=== PATIENT | male | born 2000 | race Caucasian/White ===

== ENCOUNTER 2019-05-31 04:21 | Emergency (ER) | payer SELFPAY ==
--- NOTE | ~2019-05-31 | US_ITS ---
EXAMINATION: US scrotum doppler EXAM DATE: 05/31/2019 06:42 INDICATION: Right-sided testicular pain. TECHNIQUE: Multiple grayscale and Doppler images of the testicles and scrotum were obtained bilateral ly. There is no prior study for comparison. FINDINGS: Right testicle measures 4.7 x 2.4 x 3.3 cm and is morphologically normal. Low resistance Doppler donnie w confirmed. The epididymis is unremarkable. There is no hydrocele or varicocele. Left testicle measures 4.5 x 2.1 x 3.3 cm and is morphologically normal. Low resistance Doppler flow confirmed. The epididymis is unremarkable. There is no hydrocele or varicocele. IMPRESSION: 1. Unremarkable testicular/scrotal ultrasound exam. Reviewed, dictated and finalized at location A.
[2019-05-31 04:26] VITALS: BP 151/60; PULSE 90; RESP 16; TEMP 36.6; O2SAT 100
[2019-05-31 05:17] LABS: Add Urine Microscopic? YES; Appearance Urine Clear (Clear); Bilirubin Urine Negative (Negative); Blood Urine Negative (Negative); Color Urine Straw (Yellow); Glucose Urine UA Negative (Negative); Ketones Urine Negative (Negative); Leukocyte Esterase Ur Negative LEU/UL (Negative); Mucus Urine Rare /lpf; Nitrate Urine Negative (Negative); Protein Urine Negative (Negative); RBC Urine 0-2 /hpf (0-2); Specific Grav Ur 1.015 (1.001-1.035)
--- NOTE | 2019-05-31 05:18 | ED.MALEGU ---
HPI - Male Genitourinary General Chief complaint: Urogenital-Male Stated complaint: R testicular pain Time Seen by Provider: 05/31/19 04:24 History of Present Illness HPI Narrative: Patient is a 18-year-old male who presents ER with right testicular tenderness. He has had this pain intermittently since August 2018 however is become more uncomfortable over the last 48 hours. Is occasionally associated with urinary frequency but no hematuria or dysuria. He is noticed some clear liquid coming from the tip of his penis after he urinates but is not malodorous or viscous. Not concerned about sexually transmitted infection. No nausea/vomiting/sweats. No history of kidney stones and had more family member. No known trauma. Most tender over the posterior aspect of the right testicle but is without swelling. Pain will occasionally radiate up into the epigastrium. Related Data Home Medications Medication Instructions Recorded Confirmed No Home Medications 05/31/19 05/31/19 Allergies Allergy/AdvReac Type Severity Reaction Status Date / Time No Known Allergies Allergy Verified 05/31/19 06:25 Review of Systems Review of Systems: All systems reviewed & are unremarkable except as noted in HPI and below Constitutional: Constitutional: Denies chills and Denies fever(s) Gastrointestinal: Gastrointestinal: Reports abdominal pain, Denies nausea and Denies vomiting Genitourinary: Genitourinary: Denies hematuria, Denies dysuria, Denies penile discharge, Reports testicular pain and Reports urinary frequency PMFSH Past Medical History Medical History (Updated 05/31/19 @ 07:07 by Anthony Ferreira MD) No pertinent past medical history Surgical History Surgical History (Updated 05/31/19 @ 05:28 by Anthony Ferreira MD) No pertinent past surgical history Social History Social History (Updated 05/31/19 @ 05:28 by Anthony Ferreira MD) Social History: Non-smoker Exam Narrative: Exam Narrative: GENERAL: Well-appearing, well-nourished, and in no acute distress. HEAD: Normocephalic, atraumatic. ENT: Mucous membranes moist. CHEST: Clear to auscultation. No respiratory distress. HEART: Regular rate and rhythm. Normal peripheral pulses. ABDOMEN: Soft, nontender, nondistended. : Normal-appearing external genitalia with circumcised penis without urethral discharge. Right testicle with mild discomfort posteriorly but appears to have normal lie when compared to left side. No left testicular tenderness. No discernible hernia in the inguinal region bilaterally. EXTREMITIES: Normal range of motion. No edema. NEURO: Alert and oriented x3. Course Course Emergency Course: Patient informed of results. Recommend scrotal support and anti-inflammatories. Follow-up with PCP. Vital Signs Vital signs: Vital Signs Temperature 98 F 05/31/19 04:26 Pulse Rate 90 05/31/19 04:26 Respiratory Rate 16 05/31/19 04:26 Blood Pressure 151/60 H 05/31/19 04:26 Pulse Oximetry 100 05/31/19 04:26 Temperature 98 F 05/31/19 04:26 Pulse Rate 90 05/31/19 05:33 Respiratory Rate 16 05/31/19 05:33 Blood Pressure 142/82 H 05/31/19 05:33 Pulse Oximetry 100 05/31/19 05:33 MDM - Male Genitourinary Lab Data Labs: Lab Results 05/31/19 Range/Units 04:52 Urine Color Straw (Yellow) Urine Appearance Clear (Clear) Urine pH 7.0 (5.0-9.0) Ur Specific [place] 1.015 (1.001-1.035) Urine Protein Negative (Negative) mg/dL Urine Glucose (UA) Negative (Negative) mg/dL Urine Ketones Negative (Negative) mg/dL Ur Blood (Man) Negative (Negative) Urine Nitrate Negative (Negative) Urine Bilirubin Negative (Negative) Urine Urobilinogen 4.0 H (<2.0) mg/dL Leukocyte Esterase Rfl Negative (Negative) JAIME/UL Urine RBC 0-2 (0-2) /hpf Urine Mucus Rare /lpf Imaging Data Radiologist's impression: ITS Impressions Scrotum Ultrasound 05/31/19 06:54 IMPRESSION: 1. Unrema
[2019-05-31 05:33] VITALS: BP 142/82; PULSE 90; RESP 16; O2SAT 100
--- NOTE | 2019-05-31 06:10 | PC.NURSE ---
pt to US via w/c.
[2019-05-31 07:11] VITALS: BP 132/81; PULSE 92; RESP 18; O2SAT 100
== END 2019-05-31 07:13 | disposition home or self-care (01) ==
PROVIDERS: Emergency Provider Emergency Medicine
DX: N50.811 Right testicular pain (principal)
CPT/HCPCS: 76870; 81001; 93976; 99284

== ENCOUNTER 2024-11-16 12:22 | Emergency (ER) | payer OTHER, SELFPAY ==
[2024-11-16 12:32] VITALS: BP 123/72; PULSE 68; RESP 16; TEMP 36.9; O2SAT 100
--- NOTE | 2024-11-16 13:26 | ED_ITS ---
HPI - Skin/Abscess/Foreign Bdy General Chief complaint: Skin/Abscess/Foreign Body Stated complaint: Rash Time Seen by Provider: 11/16/24 13:15 Source: patient, RN notes reviewed and old records reviewed Mode of arrival: ambulatory Limitations: no limitations History of Present Illness HPI narrative: 23 year old male who presents to [facility] care with complaints of initially noting rash on his ankles on Thursday 4 days ago which is itchy. Patient reports that he now has rash which is circular and papular on arms and legs and continues to be itchy. 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 Patient reports no illness or any fevers chills or sweats. Patient reports no rash in groin or increased itching at night no drainage noted from rash. MD complaint: rash Onset (ago): day(s) (4) Location: LLE and RLE Severity: moderate Quality: pruritic Treatments prior to arrival: none Related Data Allergies Allergy/AdvReac Type Severity Reaction Status Date / Time No Known Allergies Allergy Verified 11/16/24 13:33 Review of Systems Review of Systems: CONSTITUTIONAL: Denies fever, chills, or sweats. CARDIOVASCULAR: Denies chest pain, palpitations, or edema. RESPIRATORY: Denies cough or dyspnea. SKIN: Reports papular rash on arms and legs for 4 days, no drainage noted is itchy MUSCULOSKELETAL: Denies joint pain or myalgia. NEUROLOGIC: Denies headache, numbness, or weakness. All systems reviewed & are unremarkable except as noted in HPI and below PMFSH Past Medical History Medical History No pertinent past medical history Surgical History Surgical History No pertinent past surgical history Social History Social History Social History: Non-smoker Comments At time of signature, agree with nursing past medical, surgical, social and family history. There is no relevant family history pertinent to the presenting complaint Exam Narrative: GENERAL: Well-appearing, well-nourished, and in no acute distress. HEAD: Normocephalic, atraumatic. EYES: PERRLA, conjunctivae clear, and EOMI. ENT: Mucous membranes moist. Oropharynx without edema, erythema or lesions. NECK: Supple. No lymphadenopathy CHEST: Clear to auscultation. No respiratory distress. no cough or congestion. SAO2 100% on room air HEART: Regular rate and rhythm. SKIN: Warm, dry.? Patches of papular rash circular on arms and legs for 4 day duration no drainage noted NEURO:? Alert and oriented x3. PSYCH: Normal mood and affect Course Course Emergency Course: Patient is aware of diagnosis, understands and agrees to treatment plan.? A nticipatory guidance given.? Patient agrees to follow-up as directed and is aware of reasons to seek care at the emergency department. Portions of this record may have been created with voice recognition software Level of Care: Express Care Visit Vital Signs Vital signs: Vital Signs Temperature 36.9 C 11/16/24 12:32 Pulse Rate 68 11/16/24 12:32 Respiratory Rate 16 11/16/24 12:32 Blood Pressure 123/72 11/16/24 12:32 Pulse Oximetry 100 11/16/24 12:32 Oxygen Delivery Room Air 11/16/24 12:32 Temperature 36.9 C 11/16/24 12:32 Pulse Rate 68 11/16/24 12:32 Respiratory Rate 16 11/16/24 12:32 Blood Pressure 123/72 11/16/24 12:32 Pulse Oximetry 100 11/16/24 12:32 Oxygen Delivery Room Air 11/16/24 12:32 Reviewed MDM - Skin/Abscess/Foreign Bdy MDM Narrative Medical decision making narrative: Does not appear at this time to be erythema multiforme, bullous, SJS, TEN; no evidence at this time to suggest RMSF, endocarditis or Lyme disease; patient looks well, nontoxic and is tolerating oral intake; no neurologic signs or symptoms; no headache, photophobia or neck pain; afebrile; appropriate for initial outpatient treatment; discussed the importance of follow-up, patient agrees; question, viral exanthema, contact dermatitis, allergic dermatitis, eczema, urticaria.. No soft palate or uvula edema, no tongue, lip edema or other mucosal involvement, no respiratory compromise, no stridor, no wheezing, no wheezing, no history of syncope, no hypotension, no nausea, vomiting, or d iarrhea.? Instructed patient to go to nearest ER immediately for any worsening symptoms including but not limited to: fever, spreading rash, pain, sore throat, headache, dizziness, chest pain, trouble breathing, or any symptoms concerning to the patient. Differential Diagnosis Differential diagnosis: Likely cellulitis, eczema, contact dermatitis and other (RASH) Medical Records Attestation: I reviewed the patient's medical records. Critical Care Time Critical Care Time Critical Care Time: No Discharge Plan Discharge Clinical Impression: Contact dermatitis Qualifiers: Contact dermatitis type: allergic Contact dermatitis trigger: unspecified trigger Qualified Code(s): L23.9 - Allergic contact dermatitis, unspecified cause Patient Disposition: Home Condition: Stable Instructions: Antibiotic Form, Contact Dermatitis (ED) Additional Instructions: Triamcinolone to rash twice daily for itching never apply this to the face watch for any increasing infection--redness, swelling, drainage Zyrtec daily for 10 days Pepcid 20 mg daily for 10 days follow up with PCP in 7-10 days for a wound check recheck if develop fever, chills, increasing symptom Go to the ER if your symptoms become worse of if ANY new symptoms develop May take oral Benadryl for itching do not drive while taking If your symptoms persist, change or worsen significantly before you can contact your personal physician then please, without delay, go to the emergency department for further evaluation. Follow-up with PCP in 7-10 days or sooner if needed Oral steroids as prescribed take with food complete all doses Patient Language: Ethiopian Prescriptions: New prednisone 10 mg tablet 10 mg PO DIRECTED Qty: 21 0RF Rx Instructions: see taper instructions 6 tabs day 1, 5 tabs day 2, 4 tabs day 3, 3 tabs day 4, 2 tabs day 5, 1 tab day 6 triamcinolone acetonide 0.1 % cream 1 applic topical BID Qty: 80 0RF Rx Instructions: Apply to rash twice daily never apply this to the face famotidine [Pepcid] 20 mg tablet 20 mg PO DAILY Qty: 10 0RF Follow-up/Referrals: PHYSICIAN,CODE INSPECTOR [Primary Care Provider, Internal Medicine] Time of Disposition: 13:31 Quality [place] Coma Scale Eyes: Open Verbal: Oriented and Alert Motor: Follows Commands Michelle Coma Total Score: 15
== END 2024-11-16 13:38 | disposition home or self-care (01) ==
PROVIDERS: Emergency Provider Registered Nurse
DX: L23.9 Allergic contact dermatitis, unspecified cause (principal)
CPT/HCPCS: 99213; G0463